=== PATIENT | female | born 1955 | race Caucasian/White ===

== ENCOUNTER → 2020-08-15 | Outpatient (CLI) | payer OTHER ==
[~2020-08-15] MED LIST: ALL DAY ALLERGY10 M2 PO; ASPIRIN CHEWABL81 MG PO; CENTRUM SILVER1 EAC1 PO; DRY EYE; GLUCOPHAGE XR500 MG PO; GLUCOTROL5 MG PO; PERCOCET 5/325 T1 EA PO; VITAMIN D35000 UNI1 PO; ZOCOR20 MG PO
== END ==
LOC: MAMO 12:07
DX: Z12.31 Encounter for screening mammogram for malignant neoplasm of breast (principal); Z90.710 Acquired absence of both cervix and uterus
CPT/HCPCS: 77063; 77067

== ENCOUNTER 2020-12-01 00:13 | Emergency (ER) | payer OTHER ==
[2020-12-01 01:03] LABS: RED BLOOD COUNT 5.29 M/UL (4.00-5.10); WHITE BLOOD COUNT 10.4 K/UL (4.5-11.0)
== END 2020-12-01 06:50 | disposition other institution (70) ==
LOC: ER1 00:13 → CDU 03:15 → ER1 03:15
PROVIDERS: Emergency Medicine
DX: R42 Dizziness and giddiness (principal); E11.9 Type 2 diabetes mellitus without complications; Z20.822 Contact with and (suspected) exposure to COVID-19
CPT/HCPCS: 70496; 70498; 71045; 80053; 82550; 82553; 83735; 83874; 83880; 84100; 84439; 84443; 84484; 85025; 85610; 85730; 93005; 96374; 99285; J2405; Q9967; U0002

== ENCOUNTER → 2020-12-18 | Outpatient (CLI) | payer OTHER | LOC: KOH-I 09:03 | DX: M25.572 Pain in left ankle and joints of left foot (principal); M79.672 Pain in left foot | CPT/HCPCS: 73610; 73630 ==

== ENCOUNTER → 2021-08-24 | Outpatient (CLI) | payer OTHER | LOC: MAMO 12:18 | DX: Z12.31 Encounter for screening mammogram for malignant neoplasm of breast (principal) | CPT/HCPCS: 77063; 77067 ==

== ENCOUNTER → 2021-11-28 | Outpatient (CLI) | payer OTHER | LOC: KOH-I 08:43 | DX: M51.16 Intervertebral disc disorders with radiculopathy, lumbar region (principal) | CPT/HCPCS: 72131 ==

== ENCOUNTER → 2021-12-13 | Outpatient (CLI) | payer OTHER | LOC: LAB 11:21 | DX: E13.9 Other specified diabetes mellitus without complications (principal) | CPT/HCPCS: 36415; 83036 ==